=== PATIENT | female | born 1960 | race Caucasian/White ===

== ENCOUNTER 2016-09-18 18:38 | Emergency (ER) | payer MEDICARE ==
[~2016-09-18] VITALS: Ht 152.4 cm; Wt 49.0 kg
[2016-09-18 18:55] VITALS: BP 126/74; PULSE 68; RESP 18; O2SAT 97
--- NOTE | 2016-09-18 19:29 | ED.REPORT ---
HPI-General Illness Date of Service Sep 18, 2016 ED Provider: Kenneth Zavala MD A 56 year old female with a history of neuropathy, anxiety, and CTS is referred to the ED from Urgent Care due to weakness and dizziness. The pt experienced an episode of rapid heart rate, shakiness, weakness, dizziness, and near syncope two days ago after smoking. She was able to eat and felt better. Today, however , she experienced another episode of weakness, lightheadedness, rapid heart rate , dizziness, and "dry mouth." She also states that her "focus is off" and her blood sugars were normal. She was seen in Urgent Care, who referred her to the ED for blood work. The pt states that she has been stressed recently, and admits to frequent agitation. The pt believes that her symptoms are due to her blood sugar. Nursing Notes Stated Complaint: DIZZYNESS/DRY MOUTH Chief Complaint: General Complaint Nursing Notes Reviewed: Yes Allergies: Coded Allergies: Penicillins (Verified Allergy, Mild, Rash, 09/18/16) codeine (Verified Allergy, Mild, 09/18/16) Uncoded Allergies: ANTIDEPRESSANTS (Allergy, Mild, Varies - mood changes, nausea, anxiety, ) General Time Seen by MD: 19:27 Chief Complaint Dizziness Hx Obtained From: Patient Arrived By: Walk-in Sudden in Onset?: Yes Onset Occurred: 5 - 8 hours ago Recent Healthcare: Recent doctor visit, Recent hospitalization Similar Sx Previous: Yes Past Medical History Past Medical History anxiety head and neck injury with chronic pain 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 Physical Exam Vital Signs Vital Signs Date Time Temp Pulse Resp B/P Pulse Ox O2 Delivery O2 Flow Rate FiO2 09/18/16 21:25 78 17 121/67 99 Room Air 09/18/16 18:55 36.4 68 18 126/74 97 Room Air Initial VS: Reviewed General/Constitutional: Awake, Alert Head / Eyes: Atraumatic, Normocephalic, PERRL, EOMI no facial droop or asymmetry no visual field cuts ENT: Atraumatic, Airway patent, Mucous membranes moist Neck: Atraumatic, Supple, Full range of motion Respiratory / Chest: Atraumatic, Breath sounds NL, Breath sounds = bilat, No respiratory distress Cardiovascular: Heart rate NL, Regular rhythm, Heart sounds NL, No gallop, No murmurs, No rubs no carotid bruit Abdomen: Atraumatic, Soft, Non-tender Back: Atraumatic, Full range of motion Upper Extremities Upper Extremity / MS: Atraumatic, Full range of motion Lower Extremity / Pelvis / MS: Atraumatic, Full range of motion Skin: Atraumatic, Color NL, No rash, Warm, Dry Neurologic: Oriented X3, Speech NL, No motor deficits, No sensory deficits, CN II - XII intact Psychiatric: Affect NL, Mood NL Interpretation & Diagnostics Lab Results Interpretation Result Diagram: 09/18/165 09/18/16 1835 Test 09/18/16 18:35 White Blood Count 7.6th/mm3 (3.8-10.1) Red Blood Count 3.79mil/mm3 (3.90-5.20) Hemoglobin 12.7g/dL (12.0-15.6) Hematocrit 37.8% (35.0-46.0) Mean Corpuscular Volume 99.7fL (81-100) Mean Corpuscular Hemoglobin 33.5pg (27.0-35.0) Mean Corpuscular Hemoglobin Concent 33.6% (32.0-37.0) Red Cell Distribution Width 13.7% (12.3-15.4) Platelet Count 214bil/L (150-400) Neutrophils (%) (Auto) 52.4% (40-74) Lymphocytes (%) (Auto) 36.5% (14-46) Monocytes (%) (Auto) 6.7% (4-12) Eosinophils (%) (Auto) 3.6% (0-5) Basophils (%) (Auto) 0.7% (0-3) Sodium Level 140mEq/L (134-144) Potassium Level 4.3mEq/L (3.5-5.2) Chloride Level 102mEq/L (97-108) Carbon Dioxide Level 26mmol/L (18-29) Blood Urea Nitrogen 14mg/dL (6-24) Creatinine 0.80mg/dL (0.57-1.00) Estimat Glomerular Filtration Rate 107mL/min (>59) Glucose Level 97mg/dL (60-99) Calcium Level 8.7mg/dL (8.5-10.1) Total Bilirubin < 0.2mg/dL (0.0-1.2) Aspartate Amino Transf (AST/SGOT) 20U/L (0-50) Alanine Aminotransferase (ALT/SGPT) 9U/L (0-32) Alkaline Phosphatase 78U/L (25-150) Troponin T < 0.010ug/L (0.0-0.011) Total Protein 6.3g/dL (6.4-8.4) Albumin 3.6g/dL (3.4-5.0) Hold Rodriguez Top Tube Received (Received) ECG Interpretation ECG Interpretation: normal sinus rhythm with a rate of 63 normal EKG Time: 19:30 Interpreted by: ED physician Re-Eval/Medical Decision Source of Hx: Old records Time of Eval: 21:00 Patient Status: Condition improved Re-Evaluation/Progress Note: Pt rechecked, who is resting. Labs, diagnosis, and the plan for discharge are discussed. The pt understands and agrees with the plan. All questions are addressed at this time. Counseled Regarding: Diagnosis, Lab results, Need for follow-up, When/why to return to ED Discharge & Departure Primary Impression: Heart palpitations Disposition: Home Discharge Condition All VS Reviewed: Yes Condition: Stable Additional Instructions: Emergency department evaluation today included, examination, labs and EKG. Labs including blood count, electrolytes and cardiac/liver/kidney tests were good. ECG was normal. It is felt safe to go home today but we advise outpatient follow up when able. It may be possible to make an appointment with Dr Crowell I suggest that you call and see. If you have recurrent symptoms of heart pounding and feeling dizzy/lightheaded call 911. Referrals: Brandon Crowell MD (PCP) Scribe Attestation Portions of this note were transcribed by Eliza Fay I, Dr. Slack personally performed the history, physical exam and medical decision-making; I reviewed and confirmed the accuracy of the information in the transcribed note. Signed by: Javi Prieto, 09/18/16 and 21:18. copies to: Brandon Crowell MD, Donald L MD Sep 18, 2016 19:29 ELIZA FAY Sep 18, 2016 19:52
[2016-09-18 19:48] LABS: BASOPHILS % (AUTO) 0.7 % (0-3); EOSINOPHILS % (AUTO) 3.6 % (0-5); MONOCYTES % (AUTO) 6.7 % (4-12); Mean Corpuscular Hemoglobin 33.5 pg (27.0-35.0); Mean Corpuscular Volume 99.7 fL (81-100); NEUTROPHILS % (AUTO) 52.4 % (40-74); Platelet Count 214 bil/L (150-400)
[2016-09-18 20:28] LABS: TROPONIN T < 0.010 ug/L (0.0-0.011)
[2016-09-18 21:25] VITALS: BP 121/67; PULSE 78; RESP 17; O2SAT 99
== END 2016-09-18 21:26 | disposition home or self-care (01) ==
LOC: SED 18:38
DX: R00.2 Palpitations (principal); R53.1 Weakness; R42 Dizziness and giddiness; R68.2 Dry mouth, unspecified; R55 Syncope and collapse; R25.1 Tremor, unspecified; F17.200 Nicotine dependence, unspecified, uncomplicated; Z88.0 Allergy status to penicillin; Z88.5 Allergy status to narcotic agent